=== PATIENT | female | born 1970 | race Caucasian/White ===

== ENCOUNTER 2024-05-17 21:55 | Emergency (ER) | payer OTHER ==
[~2024-05-17] VITALS: Ht 160 cm; Wt 81.6 kg
[2024-05-17 22:03] VITALS: BP_SYST 149; PULSE 70; RESP 20; TEMP 97.8; O2SAT 98
[2024-05-17] MEDS: DIPHTH,PERTUSS(ACELL),TET VAC 0.5 ML VIAL (Tdap) I.M. ONE (23:16)
[2024-05-18] MEDS: BACITRACIN 1 GM OINT TP ONE (00:40)
== END 2024-05-17 23:47 | disposition home or self-care (01) ==
LOC: SED 21:55
DX: S61.411A Laceration without foreign body of right hand, initial encounter (principal); E11.9 Type 2 diabetes mellitus without complications; I10 Essential (primary) hypertension; W25.XXXA Contact with sharp glass, initial encounter; Y93.89 Activity, other specified; Y92.89 Other specified places as the place of occurrence of the external cause; Y99.8 Other external cause status
CPT/HCPCS: 90715; 99283